=== PATIENT | female | born 1985 | race Caucasian/White ===

== ENCOUNTER 2017-01-12 18:22 | Emergency (ER) | payer OTHER ==
[~2017-01-12] VITALS: Ht 154.9 cm; Wt 118.2 kg
[2017-01-12 18:38] VITALS: BP 149/97; RESP 16; O2SAT 100
== END 2017-01-12 19:59 | disposition left against medical advice (07) ==
LOC: SED 18:22
DX: H92.01 Otalgia, right ear (principal); Z53.21 Procedure and treatment not carried out due to patient leaving prior to being seen by health care provider